=== PATIENT | female | born 1980 | race Caucasian/White ===

== ENCOUNTER 2020-07-26 00:30 | Inpatient (IN) | payer BC, SELFPAY ==
[~2020-07-26] VITALS: Ht 163.8 cm; Wt 76.2 kg
[2020-07-26] MEDS ORDERED: OXYTOCIN/0.9 % SODIUM CHLORIDE 1,000 ML IV SCH (01:15)
[2020-07-26] MEDS ORDERED: DINOPROSTONE 10 MG SUPP VG ONE (01:15)
[2020-07-26] MEDS ORDERED: TERBUTALINE SULFATE 1 MG/ML VIAL SUBCUT ONE (01:15)
[2020-07-26 02:07] VITALS: BP_SYST 129
[2020-07-26 02:29] LABS: BASOPHILS % (AUTO) 0.4 % (0.0-2.0); EOSINOPHILS # (AUTO) 0.1 K/uL (0.0-0.4); EOSINOPHILS % (AUTO) 0.7 % (0.0-4.0); LYMPHOCYTES # (AUTO) 1.4 K/uL (1.0-5.5); LYMPHOCYTES % (AUTO) 15.9 % (20.5-51.5); MEAN CORPUSCULAR HEMOGLOBIN 27 pg (27-31); MEAN CORPUSCULAR HGB CONC 33 % (32-36); MEAN CORPUSCULAR VOLUME 82 fL (79.0-98.0); MONOCYTES # (AUTO) 0.8 K/uL (0.0-1.0); MONOCYTES % (AUTO) 9.4 % (1.7-9.3); NEUTROPHILS # (AUTO) 6.6 K/uL (1.8-7.7); NEUTROPHILS % (AUTO) 73.6 % (40.0-70.0); PLATELET COUNT (AUTO) 166 K/uL (130-430); RED BLOOD CELL COUNT(AUTO) 3.65 MIL/uL (4.2-6.2); RED CELL DISTRIBUTION WIDTH 14.6 % (9.0-15.0); WHITE BLOOD COUNT (AUTO) 8.9 K/uL (4.8-10.8)
[2020-07-26] MEDS ORDERED: AMPICILLIN SODIUM 2 GM in NS 100 ML IV ONE (02:30)
[2020-07-26] MEDS: LR 1,000 ML IV SCH ×4 (06:55→20:45)
[2020-07-26] MEDS ORDERED: AMPICILLIN SODIUM 2 GM VIAL ONE (07:08)
[2020-07-26] MEDS: MORPHINE SULFATE 10 MG/ML VIAL IVP PRN ×2 (07:57→15:06)
[2020-07-26] MEDS: AMPICILLIN SODIUM 1 GM in NS 50 ML IV SCH ×4 (11:15→23:00)
[2020-07-26] MEDS ORDERED: AMPICILLIN SODIUM 1 GM VIAL ONE (11:55)
[2020-07-26] MEDS ORDERED: fentaNYL CITRATE/PF 100 MCG/2 ML AMP ONE (16:44)
[2020-07-26] MEDS ORDERED: ROPIVACAINE HCL/PF 0.2% 200 ML ONE (16:44)
[2020-07-26] MEDS ORDERED: FENT2mCg/mL-ROPIVA0.2%/NS EPID 200 ML EP SCH (17:30)
[2020-07-26] MEDS ORDERED: LR 500 ML IV ONE (17:30)
[2020-07-26] MEDS ORDERED: ACETAMINOPHEN 325 MG TABLET PO PRN (17:45)
[2020-07-26] MEDS ORDERED: ACETAMINOPHEN 325 MG TABLET ONE (17:58)
[2020-07-27] MEDS: AMPICILLIN SODIUM 1 GM in NS 50 ML IV SCH (03:10)
[2020-07-27] MEDS ORDERED: ROPIVACAINE HCL/PF 0.2% 200 ML ONE (05:45)
[2020-07-27] MEDS: LR 1,000 ML IV SCH (05:52)
[2020-07-27] MEDS ORDERED: AMPICILLIN SODIUM 1 GM in NS 50 ML IV SCH (07:00)
[2020-07-27] MEDS ORDERED: CEFAZOLIN 2 GM IVPB PREMIX 50 ML IV ONE (10:00)
[2020-07-27] MEDS ORDERED: MORPHINE SULFATE 10MG/10ML PF AMP EP ONE (11:06)
[2020-07-27] MEDS ORDERED: LIDOCAINE 2%, 20 ML MDV INJ ONE (11:06)
[2020-07-27] MEDS ORDERED: OXYTOCIN 10 UNIT/ML VIAL IV ONE (11:06)
[2020-07-27] MEDS ORDERED: AMPICILLIN SODIUM 1 GM VIAL IV ONE (11:06)
[2020-07-27] MEDS ORDERED: ONDANSETRON HCL 4 MG/2 ML VIAL IVP ONE (11:06)
[2020-07-27] MEDS ORDERED: KETOROLAC TROMETHAMINE 30 MG VIAL IVP ONE (11:06)
[2020-07-27] MEDS ORDERED: LR 1,000 ML IV.SOLN IV ONE (11:06)
[2020-07-27] MEDS ORDERED: NS IRRIG SOLN 1000 ML IR ONE (11:06)
[2020-07-27] MEDS ORDERED: METOCLOPRAMIDE HCL 10 MG/2 ML VIAL IVP ONE (11:06)
[2020-07-27] MEDS ORDERED: KETOROLAC TROMETHAMINE 60 MG/2 ML VIAL IM PRN (12:00)
[2020-07-27] MEDS ORDERED: MORPHINE SULFATE 10MG/10ML PF AMP EP SCH (12:00)
[2020-07-27] MEDS ORDERED: DIPHENHYDRAMINE INJ 50 MG/ML VIAL IM PRN (12:00)
[2020-07-27] MEDS ORDERED: NALOXONE HCL 0.4 MG/ML AMP (NARCAN) IVP PRN ×2 (12:00→12:30)
[2020-07-27] MEDS ORDERED: ONDANSETRON HCL 4 MG/2 ML VIAL IVP PRN (12:00)
[2020-07-27 12:10] VITALS: BP_SYST 127
[2020-07-27] MEDS ORDERED: MEASLES,MUMPS&RUBELLA VACC/PF 12500 UNIT/0.5 ML VIAL SUBQ PRN (12:30)
[2020-07-27] MEDS ORDERED: BISACODYL 10 MG/SUPPOSITORY RC PRN (12:30)
[2020-07-27] MEDS ORDERED: OXYTOCIN/0.9 % SODIUM CHLORIDE 1,000 ML IV SCH (12:30)
[2020-07-27] MEDS ORDERED: OXYCODONE/ACETAMINOPHEN *10*mg/325 mg TABLET PO PRN (12:30)
[2020-07-27] MEDS ORDERED: LANOLIN 7 GM OINT. TP PRN (12:30)
[2020-07-27] MEDS ORDERED: RHO(D) IMMUNE GLOBULIN/MALTOSE 1500 UNITS/1.3 ML (WINHRO) IM PRN (12:30)
[2020-07-27] MEDS ORDERED: DIPH-TET-PERTUS Vaccine 0.5 ML VIAL (ADACEL) I.M. PRN (12:30)
[2020-07-27] MEDS ORDERED: LR 1,000 ML IV SCH (12:30)
[2020-07-27] MEDS ORDERED: TEMAZEPAM 15 MG CAPSULE PO PRN (12:30)
[2020-07-27] MEDS ORDERED: ANUSOL 1 EA SUPP.RECT (PREPARATION H) RC PRN (12:30)
[2020-07-27] MEDS: CEFAZOLIN 1 GM IVPB PREMIX 50 ML IV SCH ×2 (18:00→23:39)
[2020-07-27] MEDS: KETOROLAC TROMETHAMINE 30 MG VIAL IVP SCH (23:37)
[2020-07-28] MEDS: KETOROLAC TROMETHAMINE 30 MG VIAL IVP SCH ×3 (06:08→17:42)
[2020-07-28] MEDS: CEFAZOLIN 1 GM IVPB PREMIX 50 ML IV SCH (06:11)
[2020-07-28 07:04] LABS: BASOPHILS % (AUTO) 0.3 % (0.0-2.0); EOSINOPHILS % (AUTO) 0.3 % (0.0-4.0); LYMPHOCYTES % (AUTO) 7.5 % (20.5-51.5); MEAN CORPUSCULAR HEMOGLOBIN 27 pg (27-31); MEAN CORPUSCULAR HGB CONC 33 % (32-36); MEAN CORPUSCULAR VOLUME 83 fL (79.0-98.0); MONOCYTES # (AUTO) 1.1 K/uL (0.0-1.0); MONOCYTES % (AUTO) 8.1 % (1.7-9.3); NEUTROPHILS # (AUTO) 11.1 K/uL (1.8-7.7); NEUTROPHILS % (AUTO) 83.8 % (40.0-70.0); PLATELET COUNT (AUTO) 145 K/uL (130-430); RED BLOOD CELL COUNT(AUTO) 2.33 MIL/uL (4.2-6.2); RED CELL DISTRIBUTION WIDTH 14.5 % (9.0-15.0); WHITE BLOOD COUNT (AUTO) 13.3 K/uL (4.8-10.8)
[2020-07-28 08:02] LABS: HEMOGLOBIN 6.4 g/dL (12.0-16.0)
[2020-07-28 08:03] LABS: HEMATOCRIT 19.3 % (36-48)
[2020-07-28] MEDS: DOCUSATE SODIUM 100 MG CAPSULE PO PRN (08:25)
[2020-07-28] MEDS: OXYCODONE/ACETAMINOPHEN 5-325 TABLET PO PRN ×2 (08:26→21:17)
[2020-07-28] MEDS: SIMETHICONE 80 MG TAB.CHEW PO PRN ×3 (08:26→21:17)
[2020-07-28] MEDS: SENNOSIDES/DOCUSATE SODIUM 1 TAB TABLET(SENOKOT-S) PO PRN (21:18)
[2020-07-29] MEDS: IBUPROFEN 600 MG TABLET PO SCH ×4 (00:04→17:43)
[2020-07-29] MEDS: SIMETHICONE 80 MG TAB.CHEW PO PRN ×2 (00:04→06:29)
[2020-07-29] MEDS: DOCUSATE SODIUM 100 MG CAPSULE PO PRN (00:04)
[2020-07-29] MEDS: OXYCODONE/ACETAMINOPHEN 5-325 TABLET PO PRN (06:30)
[2020-07-29] MEDS: SENNOSIDES/DOCUSATE SODIUM 1 TAB TABLET(SENOKOT-S) PO PRN (06:30)
[2020-07-29 08:20] LABS: BASOPHILS % (AUTO) 0.2 % (0.0-2.0); EOSINOPHILS # (AUTO) 0.1 K/uL (0.0-0.4); EOSINOPHILS % (AUTO) 0.5 % (0.0-4.0); LYMPHOCYTES # (AUTO) 0.8 K/uL (1.0-5.5); LYMPHOCYTES % (AUTO) 6.5 % (20.5-51.5); MEAN CORPUSCULAR HEMOGLOBIN 27 pg (27-31); MEAN CORPUSCULAR HGB CONC 33 % (32-36); MEAN CORPUSCULAR VOLUME 83 fL (79.0-98.0); MONOCYTES # (AUTO) 0.9 K/uL (0.0-1.0); MONOCYTES % (AUTO) 7.1 % (1.7-9.3); NEUTROPHILS # (AUTO) 10.6 K/uL (1.8-7.7); NEUTROPHILS % (AUTO) 85.7 % (40.0-70.0); PLATELET COUNT (AUTO) 123 K/uL (130-430); RED CELL DISTRIBUTION WIDTH 14.5 % (9.0-15.0); WHITE BLOOD COUNT (AUTO) 12.3 K/uL (4.8-10.8)
[2020-07-29 08:24] LABS: RED BLOOD CELL COUNT(AUTO) 1.91 MIL/uL (4.2-6.2)
[2020-07-29 08:26] LABS: HEMATOCRIT 15.8 % (36-48); HEMOGLOBIN 5.2 g/dL (12.0-16.0)
[2020-07-29] MEDS ORDERED: EPOETIN ALFA 10,000 UNITS/ML VIAL SUBCUT ONE ×2 (09:15→11:30)
[2020-07-29] MEDS ORDERED: IRON DEXTRAN COMPLEX 25 MG in NS 50 ML IV ONE (10:00)
[2020-07-29] MEDS ORDERED: IRON DEXTRAN COMPLEX 75 MG in NS 100 ML IV ONE (12:00)
[2020-07-30] MEDS: IBUPROFEN 600 MG TABLET PO SCH ×4 (00:04→18:02)
[2020-07-30] MEDS ORDERED: COMMUNICATION ORDER XX ONE (07:45)
[2020-07-30] MEDS: SIMETHICONE 80 MG TAB.CHEW PO PRN ×2 (08:51→11:55)
[2020-07-30] MEDS ORDERED: EPOETIN ALFA 20,000 UNITS/ML VIAL SUBCUT SCH (09:00)
[2020-07-30] MEDS: IRON DEXTRAN COMPLEX 100 MG in NS 100 ML IV SCH (11:56)
[2020-07-30] MEDS: DOCUSATE SODIUM 100 MG CAPSULE PO PRN (12:21)
[2020-07-31] MEDS: IBUPROFEN 600 MG TABLET PO SCH ×2 (00:04→05:42)
[2020-07-31] MEDS: SIMETHICONE 80 MG TAB.CHEW PO PRN ×2 (00:04→05:06)
[2020-07-31] MEDS: DOCUSATE SODIUM 100 MG CAPSULE PO PRN (00:04)
[2020-07-31] MEDS: HYDROcodone/ACETAMIN 5-325 MG TAB (NORCO/ VICODIN) PO PRN ×2 (00:32→05:05)
[2020-07-31 07:51] LABS: NEUTROPHILS # (AUTO) 5.6 K/uL (1.8-7.7)
[2020-07-31] MEDS ORDERED: EPOETIN ALFA 20,000 UNITS/ML VIAL SUBCUT ONE (08:00)
[2020-07-31 08:10] LABS: BASOPHILS % (AUTO) 0.3 % (0.0-2.0); EOSINOPHILS # (AUTO) 0.1 K/uL (0.0-0.4); EOSINOPHILS % (AUTO) 1.9 % (0.0-4.0); LYMPHOCYTES % (AUTO) 13.5 % (20.5-51.5); MEAN CORPUSCULAR HEMOGLOBIN 29 pg (27-31); MEAN CORPUSCULAR HGB CONC 34 % (32-36); MEAN CORPUSCULAR VOLUME 84 fL (79.0-98.0); MONOCYTES # (AUTO) 0.7 K/uL (0.0-1.0); NEUTROPHILS % (AUTO) 75.3 % (40.0-70.0); PLATELET COUNT (AUTO) 161 K/uL (130-430); RED CELL DISTRIBUTION WIDTH 14.9 % (9.0-15.0); WHITE BLOOD COUNT (AUTO) 7.5 K/uL (4.8-10.8)
[2020-07-31 08:50] LABS: RED BLOOD CELL COUNT(AUTO) 1.87 MIL/uL (4.2-6.2)
[2020-07-31 08:53] LABS: HEMATOCRIT 15.7 % (36-48); HEMOGLOBIN 5.4 g/dL (12.0-16.0)
[2020-07-31] MEDS: IRON DEXTRAN COMPLEX 100 MG in NS 100 ML IV SCH (10:33)
== END 2020-07-31 11:48 | disposition home or self-care (01) | DRG 788 ==
LOC: SPU 00:30
PROVIDERS: ADMIT Specialist; ATTEND Specialist
PROC: 10D00Z1 Extraction of Products of Conception, Low, Open Approach (ICD-10-PCS; principal; 2020-07-27 11:06)
DX: O62.2 Other uterine inertia (principal); O33.9 Maternal care for disproportion, unspecified; O76 Abnormality in fetal heart rate and rhythm complicating labor and delivery; O99.02 Anemia complicating childbirth; D64.9 Anemia, unspecified; O32.4XX0 Maternal care for high head at term, not applicable or unspecified; Z20.828 Contact with and (suspected) exposure to other viral communicable diseases; Z3A.39 39 weeks gestation of pregnancy; Z37.0 Single live birth
CPT/HCPCS: 36415; 85025; 86886; 86900; 86901; J0290; J0690; J0885; J1750; J1885; J2001; J2270; J2274; J2405; J2590; J2765; J3010; J7120; U0003